=== PATIENT | male | born 1950 | race Caucasian/White ===

== ENCOUNTER → 2018-08-12 07:56 | Outpatient (CLI) | payer MEDICARE, SELFPAY ==
[2018-08-14 20:07] LABS: Red Blood Cell Count Test/G6PD 4.03 x10E6/uL (4.14-5.80)
[2018-08-15 11:15] LABS: G6PD Quant Test 267 (146-376)
== END ==
PROVIDERS: Family Provider Family Medicine; PCP Family Medicine; Referring Provider Internal Medicine Rheumatology; Visit Provider Internal Medicine Rheumatology
DX: M06.4 Inflammatory polyarthropathy (principal); Z79.899 Other long term (current) drug therapy; M79.7 Fibromyalgia; G56.01 Carpal tunnel syndrome, right upper limb
CPT/HCPCS: 36415; 82955